=== PATIENT | female | born 1955 | race Hispanic/Latino ===

== ENCOUNTER 2022-08-19 06:53 | Observation (INO) | payer OTHER, MEDICARE ==
[2022-08-14 16:34] LABS: BASOPHILS % (AUTO) 0.3 % (0.0-5.0); EOSINOPHILS % (AUTO) 4.9 % (0.0-8.0); HEMATOCRIT 39.9 % (36-48); LYMPHOCYTES % (AUTO) 30.4 % (21.0-51.0); MEAN CORPUSCULAR HEMOGLOBIN 28.2 pg (27.0-33.0); MEAN CORPUSCULAR HGB CONC 31.8 g/dL (32.0-36.0); MEAN CORPUSCULAR VOLUME 88.5 fL (79-99); MONOCYTES % (AUTO) 8.2 % (3.0-13.0); NEUTROPHILS % (AUTO) 55.9 % (40.0-77.0); PLATELET COUNT (AUTO) 234 K/uL (130-400); RED BLOOD CELL COUNT(AUTO) 4.51 MIL/uL (4.00-5.50); RED CELL DISTRIBUTION WIDTH 13.2 % (11.0-15.5); WHITE BLOOD COUNT (AUTO) 5.9 K/uL (4.8-10.8)
[2022-08-14 16:44] LABS: CREATININE 0.7 mg/dL (0.5-1.5); INR 0.94 (0.85-1.15); POTASSIUM 4.5 mmol/L (3.5-5.1); PROTHROMBIN TIME 10.3 SEC (9.6-11.6)
[2022-08-14 16:45] LABS: PARTIAL THROMBOPLASTIN TIME 27.9 SEC (26.3-35.5)
[2022-08-18 08:47] VITALS: BP 140/78
[~2022-08-19] VITALS: Ht 157.5 cm; Wt 84.4 kg
[2022-08-19] VITALS (23 sets, daily range): BP systolic 94–156; BP diastolic 58–88
[~2022-08-19 06:53] MED LIST: 0.9%NACL 1000ML 1,000 ML IV ONE; ATOR40TA71 PO; CEFAZOLIN SODIUM 2 GM VIAL ONE; GABA-529 PO; LEVO50CA4 PO; LISI10TA24 PO; MELO-106 PO; OZEMPIC SQ
[2022-08-19] MEDS: CEFAZOLIN SODIUM 2 GM VIAL IVPB SCH ×2 (08:00→12:19)
[2022-08-19] MEDS ORDERED: LACTATED RINGERS 1000ML 1,000 ML IV SCH (08:00)
[2022-08-19] MEDS ORDERED: TRANEXAMIC ACID 1000MG/10ML ONE (10:16)
[2022-08-19] MEDS ORDERED: PROPOFOL 10 MG/ML 20ML VIAL IV ONE (11:58)
[2022-08-19] MEDS ORDERED: MIDAZOLAM HCL 1 MG/ML 2ML VIAL ONE (11:58)
[2022-08-19] MEDS ORDERED: FENTANYL CITRATE PF 50 MCG/1 ML 2ML VIAL ONE (11:59)
[2022-08-19] MEDS ORDERED: ROPIVACAINE 0.5% 5MG/ML 30ML IJ ONE (12:01)
[2022-08-19] MEDS ORDERED: KETOROLAC 30MG VIAL (30MG/ML) ONE (12:52)
[2022-08-19] MEDS ORDERED: ONDANSETRON 4MG INJ ONE (12:52)
[2022-08-19] MEDS ORDERED: GLYCOPYRROLATE 1 MG/5 ML SYRINGE ONE (12:58)
[2022-08-19] MEDS ORDERED: ONDANSETRON 4MG INJ IVP PRN (13:00)
[2022-08-19] MEDS ORDERED: ACETAMINOPHEN 1,000 MG/100 ML VIAL IV SCH (13:00)
[2022-08-19] MEDS: 0.9%NACL 1000ML 1,000 ML IV SCH (13:00)
[2022-08-19] MEDS ORDERED: LIDOCAINE HCL-MPF 1% 2ML VIAL IV PRN (13:00)
[2022-08-19] MEDS ORDERED: POTASSIUM CHLORIDE 20MEQ/100ML 100 ML IV PRN (13:00)
[2022-08-19] MEDS ORDERED: KCL 20 MEQ ERTAB PO PRN (13:00)
[2022-08-19] MEDS ORDERED: POTASSIUM CHLORIDE 10% ELIXIR 20 MEQ/15 ML UDCUP PO PRN (13:00)
[2022-08-19] MEDS ORDERED: HYDROCODONE/ACETAMINOPHEN 10/325 MG TAB PO PRN (13:00)
[2022-08-19] MEDS ORDERED: MEPERIDINE-PF 25 MG/ML SYG ONE ×2 (14:18→14:49)
[2022-08-19] MEDS: MORPHINE 4 MG SYG IVP PRN ×2 (15:57→20:40)
[2022-08-19] MEDS ORDERED: IBUPROFEN 800MG + NS 250ML IV SCH (16:00)
[2022-08-19] MEDS: INSULIN HUMULIN R 100 UNIT/ML 3ML SQ SCH ×2 (16:30→20:41)
[2022-08-19] MEDS: CALDOLOR 800MG+NS 250ML 250 ML IV SCH ×2 (18:23→23:13)
[2022-08-19] MEDS: TRAMADOL HCL 50 MG TABLET PO SCH ×2 (18:27→23:13)
[2022-08-19] MEDS: CEFAZOLIN SODIUM 1 GM VIAL IVP SCH (18:27)
[2022-08-19] MEDS ORDERED: ACETAMINOPHEN 500 MG TABLET ONE (20:02)
[2022-08-19] MEDS: FAMOTIDINE 20MG TAB PO SCH (20:40)
[2022-08-19] MEDS: GABAPENTIN 100 MG CAPSULE PO SCH (20:40)
[2022-08-19] MEDS: ASPIRIN 81 MG EC TAB PO SCH (20:40)
[2022-08-20] MEDS ORDERED: CEFAZOLIN SODIUM 2 GM VIAL ONE (03:25)
[2022-08-20] MEDS: CEFAZOLIN SODIUM 1 GM VIAL IVP SCH (03:37)
[2022-08-20] MEDS: MORPHINE 4 MG SYG IVP PRN (03:39)
[2022-08-20 04:14] VITALS: BP 120/56
[2022-08-20 05:24] LABS: HEMATOCRIT 31.8 % (36-48); MEAN CORPUSCULAR HEMOGLOBIN 27.4 pg (27.0-33.0); MEAN CORPUSCULAR HGB CONC 31.8 g/dL (32.0-36.0); MEAN CORPUSCULAR VOLUME 86.4 fL (79-99); RED BLOOD CELL COUNT(AUTO) 3.68 MIL/uL (4.00-5.50); RED CELL DISTRIBUTION WIDTH 13.2 % (11.0-15.5); WHITE BLOOD COUNT (AUTO) 7.3 K/uL (4.8-10.8)
[2022-08-20 05:36] LABS: CREATININE 0.7 mg/dL (0.5-1.5); POTASSIUM 4.2 mmol/L (3.5-5.1)
[2022-08-20] MEDS: LEVOTHYROXINE 50 MCG TABLET PO SCH (06:09)
[2022-08-20] MEDS: TRAMADOL HCL 50 MG TABLET PO SCH ×4 (06:09→23:34)
[2022-08-20] MEDS: INSULIN HUMULIN R 100 UNIT/ML 3ML SQ SCH ×4 (07:30→20:29)
[2022-08-20 08:00] VITALS: BP 124/55
[2022-08-20] MEDS: GABAPENTIN 100 MG CAPSULE PO SCH ×2 (08:33→19:37)
[2022-08-20] MEDS: FAMOTIDINE 20MG TAB PO SCH ×2 (08:34→19:38)
[2022-08-20] MEDS: HYDROCODONE/ACETAMINOPHEN 5/325 MG TAB PO PRN ×2 (08:34→18:09)
[2022-08-20] MEDS: POLYETHYLENE GLYCOL 3350 17 GM POWD.PACK PO SCH (08:34)
[2022-08-20] MEDS: ASPIRIN 81 MG EC TAB PO SCH ×2 (08:34→19:37)
[2022-08-20] MEDS: LISINOPRIL 10 MG TABLET PO SCH (08:34)
[2022-08-20 12:00] VITALS: BP 105/55
[2022-08-20] MEDS: 0.9%NACL 1000ML 1,000 ML IV SCH (12:00)
[2022-08-20 16:00] VITALS: BP 120/66
[2022-08-20] MEDS ORDERED: FERROUS GLUCONATE 324 TABLET ONE (19:24)
[2022-08-20] MEDS: FERROUS GLUCONATE 324 TABLET PO SCH (19:38)
[2022-08-20 20:00] VITALS: BP 132/70
[2022-08-21] VITALS: BP 143/74
[2022-08-21] MEDS: HYDROCODONE/ACETAMINOPHEN 5/325 MG TAB PO PRN (02:40)
[2022-08-21 04:00] VITALS: BP 129/65
[2022-08-21] MEDS: TRAMADOL HCL 50 MG TABLET PO SCH ×2 (05:09→12:00)
[2022-08-21] MEDS: LEVOTHYROXINE 50 MCG TABLET PO SCH (05:09)
[2022-08-21] MEDS: INSULIN HUMULIN R 100 UNIT/ML 3ML SQ SCH ×2 (06:03→11:30)
[2022-08-21 08:00] VITALS: BP 146/78
[2022-08-21] MEDS: FERROUS GLUCONATE 324 TABLET PO SCH (09:01)
[2022-08-21] MEDS: FAMOTIDINE 20MG TAB PO SCH (09:01)
[2022-08-21] MEDS: GABAPENTIN 100 MG CAPSULE PO SCH (09:01)
[2022-08-21] MEDS: ASPIRIN 81 MG EC TAB PO SCH (09:01)
[2022-08-21] MEDS: POLYETHYLENE GLYCOL 3350 17 GM POWD.PACK PO SCH (09:01)
[2022-08-21] MEDS: LISINOPRIL 10 MG TABLET PO SCH (09:01)
[2022-08-21] MEDS: MORPHINE 4 MG SYG IVP PRN (09:02)
[2022-08-21 12:00] VITALS: BP 142/76
[2022-08-22] MEDS ORDERED: BISACODYL 10 MG SUPP.RECT RC PRN (13:00)
== END 2022-08-21 16:00 | disposition home or self-care (01) ==
LOC: DAH 06:53 → DAHIP 06:54 → DAH 06:54 → 4DH 15:40
PROVIDERS: ADMIT Orthopaedic Surgery; ATTEND Orthopaedic Surgery
DX: M17.12 Unilateral primary osteoarthritis, left knee (principal); Z20.822 Contact with and (suspected) exposure to COVID-19; R53.83 Other fatigue; I10 Essential (primary) hypertension; E11.9 Type 2 diabetes mellitus without complications; E66.01 Morbid (severe) obesity due to excess calories; Z79.899 Other long term (current) drug therapy
CPT/HCPCS: 0055T; 27447; 36415; 80048; 82948; 85025; 85027; 85610; 85730; 87426; 87641; 96365; 96366; 96375; 96376; 97039; G0378; J0690; J1741; J1885; J2175; J2250; J2270; J2405; J2704; J2795; J3010; J3490; J7030